=== PATIENT | male | born 1970 | race Caucasian/White ===

== ENCOUNTER 2019-04-23 00:38 | Emergency (ER) | payer BC ==
[2019-04-23] MEDS ORDERED: Lidocaine Viscous Sol 2% 15 ml UD Cup ONE (00:53)
[2019-04-23] MEDS ORDERED: Mag-Al Plus 1200 MG/1200 MG/120 MG/30 ML UDCUP ONE (00:53)
[2019-04-23] MEDS ORDERED: Famotidine 20 MG TAB ONE (02:10)
[2019-04-23] MEDS ORDERED: Aspirin Chewable 81 MG TAB ONE (02:10)
[2019-04-23 02:16] LABS: #Basophils 0.1 thou/uL (0.0-0.2); #Eosinphils 0.2 thou/uL (0.0-0.7); #Monocytes 0.8 thou/uL (0.11-0.59); #Neutrophils 6.1 thou/uL (1.40-6.50); %Basophils 0.8 % (0.0-1.0); %Eosinophils 1.8 % (0.0-10.0); %Lymphocytes 21.5 % (21.0-51.0); %Monocytes 8.6 % (0.0-10.0); %Neutrophils 67.2 % (42.0-75.0); Hemoglobin 15.1 g/dL (14.0-18.0); Mean Corpuscular HGB CONC 33.2 g/dL (32.0-36.0); Mean Corpuscular Volume 87.3 fL (78.0-98.0); Mean Platelet Volume 8.8 fL (7.4-10.4); Platelet Count 189 thou/uL (130-400); RBC Distribution Width 11.7 % (11.5-14.5); White Blood Cell (WBC) Count 9.1 thou/uL (4.8-10.8)
[2019-04-23] MEDS ORDERED: Sucralfate 1 GM/10 ML UDCUP ONE (02:19)
[2019-04-23] MEDS ORDERED: Sucralfate 1 GM TAB PO SCH (02:30)
[2019-04-23 02:34] LABS: ALT (SGPT) 43 U/L (8-55); AST (SGOT) 19 U/L (5-34); Albumin 4.3 g/dL (3.5-5.0); Alkaline Phosphatase 76 U/L (40-110); BUN (Urea Nitrogen) 9 mg/dL (8.9-20.6); Bilirubin, Total 0.9 mg/dL (0.2-1.2); Calc. Creatinine Clearance 0 mL/min (70-130); Calcium 9.3 mg/dL (7.8-10.44); Carbon Dioxide 24 mmol/L (22-29); Estimated GFR-MDRD 88; Globulin 2.6 g/dL (2.4-3.5); Glucose 120 mg/dL (70-105); Protein, Total 6.9 g/dL (6.0-8.3)
[2019-04-23 02:45] LABS: Chloride 106 mmol/L (98-107); Sodium 141 mmol/L (136-145)
[2019-04-23] MEDS ORDERED: Albuterol Sulfate 2.5 mg/0.5 ml Neb ONE ×2 (02:56→03:13)
[2019-04-23] MEDS ORDERED: EPINEPHrine 1 MG/ML AMP ONE (03:01)
[2019-04-23 03:07] LABS: Anion Gap 15 mmol/L (10-20)
--- NOTE | 2019-04-23 06:26 | RAD ---
CHEST ONE VIEW: INDICATIONS: Chest pain. COMPARISON: None. FINDINGS: The lungs are clear. Heart size is normal. No acute osseous abnormality is evident. IMPRESSION: No acute cardiopulmonary abnormality. POS: [facility]
== END 2019-04-23 05:13 | disposition home or self-care (01) ==
LOC: MADERS 00:38
DX: K21.9 Gastro-esophageal reflux disease without esophagitis (principal); F17.220 Nicotine dependence, chewing tobacco, uncomplicated
CPT/HCPCS: 71045; 80053; 83880; 84484; 85025; 93005; J0171; J7611

== ENCOUNTER 2020-05-14 21:44 | Emergency (ER) | payer BC, OTHER ==
[2020-05-15 17:25] LABS: SARS-CoV-2 MS2 Positive; SARS-CoV-2 N Gene Negative; SARS-CoV-2 S Gene Negative; SARS-CoV-2 by NAA Not Detected (NotDetected); SARS-CoV-2 orf1ab Negative
== END 2020-05-14 22:32 | disposition home or self-care (01) ==
LOC: MADERS 21:44
DX: R05 Cough (principal); R51.9 Headache, unspecified; Z20.828 Contact with and (suspected) exposure to other viral communicable diseases; F17.220 Nicotine dependence, chewing tobacco, uncomplicated
CPT/HCPCS: 87635; 99284; U0003

== ENCOUNTER 2021-03-21 20:43 | Emergency (ER) | payer BC ==
[2021-03-21 21:36] LABS: #Basophils 0.1 thou/uL (0.0-0.2); #Eosinphils 0.1 thou/uL (0.0-0.7); #Lymphocytes 2.4 thou/uL (1.20-3.40); #Monocytes 0.5 thou/uL (0.11-0.59); %Basophils 0.6 % (0.0-1.0); %Eosinophils 1.7 % (0.0-10.0); %Lymphocytes 29.4 % (21.0-51.0); %Monocytes 5.7 % (0.0-10.0); %Neutrophils 62.6 % (42.0-75.0); Mean Corpuscular HGB CONC 32.7 g/dL (32.0-36.0); Mean Corpuscular Hemoglobin 30.1 pg (27.0-31.0); Platelet Count 199 thou/uL (130-400); RBC Distribution Width 11.6 % (11.5-14.5); Red Blood Cell (RBC) Count 5.34 mill/uL (4.70-6.10); White Blood Cell (WBC) Count 8.1 thou/uL (4.8-10.8)
[2021-03-21 21:54] LABS: ALT (SGPT) 56 U/L (8-55); AST (SGOT) 22 U/L (5-34); Albumin 4.1 g/dL (3.5-5.0); Alkaline Phosphatase 72 U/L (40-110); Anion Gap 15 mmol/L (10-20); BUN (Urea Nitrogen) 10 mg/dL (8.9-20.6); Bilirubin, Total 0.8 mg/dL (0.2-1.2); CK (CPK) 88 U/L (30-200); Calc. Creatinine Clearance 0 mL/min (70-130); Calcium 9.1 mg/dL (7.8-10.44); Carbon Dioxide 23 mmol/L (22-29); Chloride 104 mmol/L (98-107); Globulin 2.5 g/dL (2.4-3.5); Glucose 169 mg/dL (70-105); Potassium 3.7 mmol/L (3.5-5.1); Protein, Total 6.6 g/dL (6.0-8.3); Sodium 138 mmol/L (136-145)
[2021-03-22 00:09] LABS: Troponin I Less than 0.010 ng/mL (< 0.028)
[2021-03-22 23:13] LABS: SARS-CoV-2 PCR by NAA Not Detected (NotDetected)
== END 2021-03-22 00:25 | disposition home or self-care (01) ==
LOC: MADERS 20:43
DX: R07.9 Chest pain, unspecified (principal); R50.9 Fever, unspecified; R05 Cough; R06.02 Shortness of breath; R19.7 Diarrhea, unspecified; F17.220 Nicotine dependence, chewing tobacco, uncomplicated; Z20.822 Contact with and (suspected) exposure to COVID-19
CPT/HCPCS: 36415; 71045; 80053; 82550; 84484; 85025; U0003; U0005

== ENCOUNTER 2023-07-12 14:35 | Emergency (ER) | payer OTHER | END 2023-07-12 16:56 | disposition home or self-care (01) | LOC: MADERS 14:35 | DX: R50.9 Fever, unspecified (principal); R51.9 Headache, unspecified; F17.220 Nicotine dependence, chewing tobacco, uncomplicated; Z20.822 Contact with and (suspected) exposure to COVID-19 | CPT/HCPCS: 87635; 87804; 99283 ==

== ENCOUNTER 2025-06-23 22:30 | Emergency (ER) | payer BC, SELFPAY ==
[2025-06-23] MEDS ORDERED: Benzonatate 100 MG CAP ONE (23:03)
== END 2025-06-23 23:09 | disposition home or self-care (01) ==
LOC: MADERS 22:30
DX: J06.9 Acute upper respiratory infection, unspecified (principal); F17.220 Nicotine dependence, chewing tobacco, uncomplicated
CPT/HCPCS: 71046